=== PATIENT | female | born 1965 | race American Indian/Alaskan Native ===

== ENCOUNTER 2022-05-28 20:58 | Inpatient (IN) | payer BC, OTHER ==
--- NOTE | 2022-05-28 22:26 | Emergency Department Report ---
ED Seizure HPI - General Chief Complaint: Syncope Stated Complaint: SYNCOPE/SEIZURE Time Seen by Provider: 05/28/22 22:09 Source: patient, family, EMS Mode of arrival: Stretcher Limitations: No Limitations - History of Present Illness Initial Comments: 56-year-old female with history of right-sided breast cancer, status postmastectomy 2019, with recent diagnosis of metastatic breast cancer to her right parietal, acid reflux, brought in by EMS for witnessed seizure. Patient states that she and her were at yazidism tonight and she was in her usual state of health when she states she felt "weirdness" in her left arm and felt palpitations "like my heart was racing really fast." Patient's states that he was called to her side and was observed that she was lying on the floor, having jerking movements in her of her arms and legs, and not responding. He states the seizure lasted for approximately 5 minutes and thereafter she was radha y confused up until EMSs arrival approximately 12 minutes later. No fecal or urinary incontinence. No tongue biting, no foaming of the mouth. No active or recent alcohol usage, no tobacco, no illicit drug usage. Patient states she was not placed on seizure medication in the past. He states that she had similar episode of his witnessed seizure activity 4 months ago at which she seized while they were watching yazidism at home. He states at that time he wanted her to come to the hospital for evaluation but the patient refused. Patient verbalized agreement with this and that she refused to seek medical care. She states that her oncologist is Dr. Ida Mckay @ [facility] ([phone]). She states that she was on oral chemotherapy but reports that due to some side effects that she was experiencing in her right eye, her oncologist ordered her for a CAT scan of her head less than 1 week ago. She states she was told that she has "spreading cancer from the breast cancer to my right parietal part of my brain." She states her oncologist is in the process of arranging her to undergo radiation. Patient denies any symptoms at this time. Pain 0 out of 10. MD Complaint: seizure -: Sudden Description of Episode: tonic-clonic movement Duration of Episode: 5 (min) Witnessed:: Yes Trauma: No Seizure History: other (Patient's reports 1 prior witnessed episode of the same seizure activity approximately 1 month ago at which time the patient refused to go to the hospital) - Related Data Previous Rx's Medication Instructions Recorded Last Taken Type Ciprofloxacin HCl [Ciprofloxacin 500 mg PO Q12HR #14 tab 06/28/15 Unknown Rx TAB] HYDROcodone/APAP 5-325 [Keenes 1 each PO Q6HR PRN #16 tablet 06/28/15 Unknown Rx 5-325 mg TAB] Phenazopyridine [Pyridium] 200 mg PO TID #6 tab 06/28/15 Unknown Rx Allergies Allergy/AdvReac Type Severity Reaction Status Date / Time iodine Allergy Severe Shortness Verified 05/28/22 23:34 of Breath JALEPENO Allergy Severe Anaphylaxis Uncoded 05/28/22 23:35 ED Review of Systems ROS: Stated complaint: SYNCOPE/SEIZURE Other details as noted in HPI Comment: All other systems reviewed and negative Constitutional: no symptoms reported Eyes: as per HPI ENT: as per HPI Respiratory: cough Cardiovascular: as per HPI, palpitations. denies: chest pain, dyspnea on exertion, orthopnea, edema, syncope, paroxysmal nocturnal dyspnea, other Endocrine: see HPI Gastrointestinal: denies: as per HPI, abdominal pain, nausea, vomiting, diarrhea, constipation, hematemesis, melena, hematochezia, other Genitourinary: denies: as per HPI, urgency, dysuria, frequency, hematuria, discharge, abnormal menses, dyspareunia, other Musculoskeletal: denies: as per HPI, back pain, joint swelling, arthralgia, myalgia Skin: denies: as per HPI, rash, lesions, change in color, change in hair/nails, pruritus, other Neurological: other (seizure). denies: as per HPI, headache Psychiatric: as per HPI Hematological/Lymphatic: as per HPI ED Past Medical Hx - Past Medical History Hx Hypertension: Yes Hx Psychiatric Treatment: Yes (bipolar) Additional medical history: anemia, - Surgical History Additional Surgical History: tubal ligation - Social History Smoking Status: Never Smoker Substance Use Type: None - Medications Home Medications: Home Medications Medication Instructions Recorded Confirmed Last Taken Type Ciprofloxacin HCl [Ciprofloxacin 500 mg PO Q12HR #14 tab 06/28/15 Unknown Rx TAB] HYDROcodone/APAP 5-325 [Keenes 1 each PO Q6HR PRN #16 tablet 06/28/15 Unknown Rx 5-325 mg TAB] Phenazopyridine [Pyridium] 200 mg PO TID #6 tab 06/28/15 Unknown Rx ED Physical Exam - General Limitations: No Limitations, Language Barrier General appearance: alert, in no apparent distress - Head Head exam: Present: atraumatic, normocephalic, normal inspection - Eye Eye exam: Present: normal appearance, PERRL, EOMI, other (Sclera anicteric) Pupils: Present: normal accommodation - ENT ENT exam: Present: normal exam, normal orophraynx, mucous membranes moist - Neck Neck exam: Present: normal inspection, full ROM. Absent: tenderness, meningismus, lymphadenopathy, thyromegaly, other - Respiratory Respiratory exam: Present: normal lung sounds bilaterally - Cardiovascular Cardiovascular Exam: Present: normal rhythm, tachycardia, normal heart sounds. Absent: systolic murmur, diastolic murmur, rubs, gallop, clicks, JVD, S3, S4, other - Extremities Exam Extremities exam: Present: normal inspection, full ROM, normal capillary refill. Absent: tenderness, pedal edema, joint swelling - Back Exam Back exam: Present: normal inspection, full ROM. Absent: tenderness, CVA tenderness (R), CVA tenderness (L), muscle spasm, rash noted - Neurological Exam Neurological exam: Present: alert, oriented X3, CN II-XII intact, normal gait, motor sensory deficit, reflexes normal, other (No witnessed seizure or seizure- like activity, no asterixis, no tremor) - Psychiatric Psychiatric exam: Present: normal affect, normal mood - Skin Skin exam: Present: warm, dry, intact, normal color. Absent: rash, cyanosis, diaphoretic, erythema, urticaria, vesicles, petechiae, pallor, abrasion, ecchymosis ED Course Vital Signs 05/28/22 05/28/22 05/28/22 21:21 21:41 23:19 Temperature 98.2 F 98.2 F 98.2 F Pulse Rate 122 H 122 H 116 H Respiratory 16 16 20 Rate Blood Pressure 119/82 Blood Pressure 150/90 150/90 119/82 [Right] O2 Sat by Pulse 96 96 100 Oximetry - Reevaluation(s) Reevaluation #1: 05/28/22 22:29 Patient reassessed. She is comfortable and well-appearing, mentation is normal, moving all extremities, no seizure-like activity, no altered sensorium, no postictal state, no focal neurodeficits Reevaluation #2: 05/29/22 0 12:12 AM to 12:21 AM: Call made to Dr. Mckay. Return call received at 12:12 AM. I received a call from the covering oncologist, . Case reviewed with him via telephone. He advises the patient be transferred to [facility] as the patient's oncologist has consulting and admitting privileges there. 12: 28 AM: medical unit secretary Radha reports she has called both facility as above. Both state that they are on diversion and therefore cannot accept the patient for transfer.: 12:40pm: 05/29/22 01:23 Reevaluation #3: 05/29/22 12:03 AM: I had an extensive discussion with the patient and her at her bedside. She is ANO x4, mentating well, and she is in no extremis. At the time of our discussion I discussed the patient's options with her concerning necessity to rule out underlying pulmonary embolism as the cause of her elevated troponin, tachycardia, and syncopal episode that happened in the setting of her seizure. Risk benefits of all options discussed with the patient and they included undergoing CTA imaging (patient reports having adverse reaction to IV contrast approximately 1 year ago and the risk benefits of being premedicated were discussed with her as well), giving anticoagulation and and undergoing VQ scan during her hospital admission, and finally no imaging and no anticoagulation. I had multiple discussions with the patient and her concerning this. The patient subsequently elected to undergo IV contrast and to be premedicated before undergoing CTA chest to rule out pulmonary embolism 05/29/22 03:13 Patient reassessed. She is comfortable and well-appearing. Patient just returned from CAT scan. Denies any complaints at this time. Airways patent and intact. Vital signs stable. We will continue to monitor. ED Medical Decision Making - Lab Data Result diagrams: 05/28/22 22:40 05/28/22 22:40 - EKG Data -: EKG Interpreted by Me EKG shows normal: sinus rhythm Rate: tachycardia - EKG Data When compared to previous EKG there are: previous EKG unavailable Interpretation: other 05/29/22 03:14 No prior EKG available for comparison at this time - Radiology Data Radiology results: report reviewed - Medical Decision Making 56-year-old female with previously known right sided breast cancer, with known mets to her right parietal region, brought in by EMS for witnessed seizure while at yazidism. Vital signs reviewed. Patient tachycardic here and manifest sinus tachycardia. Serum labs reviewed. TSH troponin and D-dimer are abnormal. Repeat troponin however has improved. I attempted to have the patient transferred at the request of the covering oncologist, . However per unit trust manager Radha, both facilities to which she recommended the patient be transferred are on diversion at this time and therefore cannot accept the maribeth ent for transfer. CTA chest performed to rule out acute pulmonary embolism as a possible etiology for the patient's elevated troponin, syncopal episode, and tachycardia. CT scan results pending at the time of this dictation. Case reviewed directly with admitting hospitalist, . Patient will be accepted to the hospitalist service by him for further management. Critical care attestation.: If time is entered above; I have spent that time in minutes in the direct care of this critically ill patient, excluding procedure time. ED Disposition Clinical Impression: Seizure, Cancer of right breast metastatic to brain, Elevated troponin Disposition: ADMITTED INPATIENT Is pt being admited?: Yes Does the pt Need Aspirin: No Condition: Stable Referrals: ANTONIO ROSALES [Other] - 3-5 Days
--- NOTE | 2022-05-28 22:40 | XRay Report ---
CHEST 1 VIEW INDICATION / CLINICAL INFORMATION: palpitations. COMPARISON: None available. FINDINGS: SUPPORT DEVICES: Right-sided venous access device terminates near the cavoatrial junction. HEART / MEDIASTINUM: Heart size is within normal limits. Mediastinal contour demonstrates no signific ant abnormality. LUNGS / PLEURA: Confluent airspace opacities are present within the mid left chest. Additional densit y in the right upper lung may be part reflect rib lesion and/or soft tissue lesion. Lungs otherwise a re clear. BONES: The posterior right sixth rib demonstrates a mottled appearance with fracture. Compatible with pathologic fracture. No other osseous lesions are clearly demonstrated. ADDITIONAL FINDINGS: No significant additional findings. IMPRESSION: 1. Opacities left mid chest may reflect infection, atelectatic changes and isolated. 2. Rib lesions posterior right rib cage as detailed. Pathologic fracture of the right posterolateral sixth rib likely. Signer Name: Brent Bergman II, MD Signed: 05/28/2022 10:36 PM Workstation Name: [id number]
--- NOTE | 2022-05-28 22:49 | Cat Scan Report ---
CT HEAD WITHOUT CONTRAST INDICATION / CLINICAL INFORMATION: fall, head injury, seizure; hx of R parietal mets pt has breast ca ncer. TECHNIQUE: CT head was performed without administration of intravenous contrast. All CT scans at this location are performed using CT dose reduction for ALARA by means of automated exposure control. COMPARISON: None available. FINDINGS: CEREBRAL HEMISPHERES: 6 mm focus of hypoattenuation at the felton-white matter junction of the anterior left frontal lobe is demonstrated. In addition, there is extensive hypoattenuation of the right fron toparietal white matter with hyperdense mass along the inner table of the right parietal calvarium. N o definite displacement of cortex suggests that this may represent a cortical base as opposed to dura l based mass, further localization is difficult secondary to limits of modality. HEMORRHAGE: None. CEREBELLUM / BRAINSTEM: No significant abnormality. ORBITS: No significant abnormality. SOFT TISSUES: No significant abnormality. SKULL: No significant abnormality. PARANASAL SINUSES / MASTOID AIR CELLS: Complete opacification of right mastoid air cells. ADDITIONAL FINDINGS: Grossly abnormal appearance of the right mandibular condyle and angle. The condy le is displaced anterior and slightly inferior to the fossa. IMPRESSION: 1. Probable metastatic lesion right parietal cortex versus dural based metastatic lesion. Meningioma is considered to be less likely. 2. 6 mm focus of hypoattenuation in anterior left frontal felton-white matter junction may reflect deanne tional metastatic disease. MRI brain prior to and following administration of intravenous contrast is recommended for further characterization. 3. Grossly abnormal appearance of the right mandibular angle and mandibular condyle. Differential con siderations for this appearance would include metastatic disease, sequelae of previous trauma and/or sequelae of previous infection. 4. Opacification of right mastoid air cells. Signer Name: Brent Bergman II, MD Signed: 05/28/2022 10:44 PM Workstation Name: [id number]
[2022-05-28 23:02] LABS: Hematocrit 27.3 % (30.3-42.9); Hemoglobin 9.3 gm/dl (10.1-14.3); Mean Corpuscular HGB Conc 34 % (30-34); Mean Corpuscular Volume 84 fl (79-97); Platelet Count 410 K/mm3 (140-440); Red Blood Count 3.25 M/mm3 (3.65-5.03)
[2022-05-28 23:21] LABS: Alanine Aminotransferase 26 units/L (7-56); Albumin 3.8 g/dL (3.9-5); Blood Urea Nitrogen 12 mg/dL (7-17); Hemolysis Index 0
[2022-05-28 23:24] LABS: Red Cell Distribution Width 20.9 % (13.2-15.2)
[2022-05-28 23:32] LABS: Amphetamine Screen,Urine Negative; Benzodiazepines Screen,Urine Negative; Cannabinoid Screen,Urine Negative; Cocaine Screen,Urine Negative; Methadone Screen,Urine Negative; Opiate Screen,Urine Negative
[2022-05-28] MEDS ORDERED: levETIRAcetam 1000 MG/NS 0.75% 1,000 MG/100 ML BAG IV ONE (23:37)
[2022-05-28 23:38] LABS: BUN/Creatinine Ratio 20
[2022-05-28 23:55] LABS: Chol/HDL Ratio 6.3 %
[2022-05-29 00:19] LABS: Basophils % (Manual) 0 % (0.0-1.8); Eosinophils % (Manual) 0 % (0.0-4.3); Total Cells Counted 100
[2022-05-29 00:20] LABS: Anisocytosis 1+; Hypochromasia 2+; Platelet Estimate Consistent w Auto; Tear Drop Cells Few
[2022-05-29] MEDS ORDERED: diphenhydrAMINE 50 MG/ML VIAL IV ONE (01:00)
[2022-05-29] MEDS ORDERED: FAMOTIDINE 20 MG/2 ML INJ IV ONE (01:00)
[2022-05-29] MEDS ORDERED: SODIUM CHLORIDE 0.9% 1000 ML 1,000 ML IV ONE (01:00)
[2022-05-29] MEDS ORDERED: HYDROCORTISONE SOD SUCC 100 MG/2 ML VIAL IV ONE (01:01)
--- NOTE | 2022-05-29 03:28 | Cat Scan Report ---
CTA CHEST WITH CONTRAST INDICATION / CLINICAL INFORMATION: breast cancer, p/w syncope, seizure, elevated d di. TECHNIQUE: Axial CT images were obtained through the chest after injection of unspecified IV contrast . 3 plane MIP and/or 3D reconstructions were produced. All CT scans at this location are performed us ing CT dose reduction for ALARA by means of automated exposure control. COMPARISON: Chest x-ray same date. FINDINGS: VASCULAR FINDINGS: PULMONARY ARTERY: Pulmonary artery is normal in size. No filling defects are present compatible with pulmonary artery embolus.. THORACIC AORTA: No significant abnormality. CORONARY ARTERY CALCIFICATION: Absent -- None. NONVASCULAR FINDINGS: LOWER NECK: Soft tissues and musculature of the lower neck demonstrate no significant abnormality. Th e thyroid demonstrates no significant abnormality. HEART: No significant abnormality. MEDIASTINUM / RUTH: No significant abnormality. ESOPHAGUS: No significant abnormality. LYMPH NODES: Enlarged subcarinal lymph nodes are suggested. No axillary adenopathy. No additional med iastinal or hilar adenopathy clearly demonstrated. Note is made that the left hilum is partially obsc ured by atelectatic lung. LUNGS: Diffusely distributed metastatic nodules are noted throughout the bilateral lungs. Additional areas of nodular thickening of the pleural surfaces are suggested and within the left lower lobe nons pecific groundglass attenuation is present. Postobstructive atelectasis of the left upper lobe is pre sent. Within the atelectatic lung, no large or dominant masses present. Small foci of hypoattenuation may reflect additional evidence of metastatic disease. Additional pleural fluid versus thickening al mayte the anterior pleural surface of the left upper chest are present. PLEURA: Small moderate dependent left pleural effusion. No pneumothorax. Pleural-based metastatic dis ease in the region of the right sixth rib with suggest chest wall invasion and erosive changes of the right sixth rib. THORACIC SOFT TISSUES: Soft tissue swelling around the right scapula with permeative appearance of th e scapula compatible with metastatic involvement. BONES: Metastatic disease involving the right sixth rib, right scapula, and possibly within the right transverse process and posterior elements as well as left pedicle of T3 as well as vertebral body of T2. ADDITIONAL CHEST FINDINGS: None. UPPER ABDOMEN: Multiple hepatic metastatic lesions are demonstrated within the left and right hepatic lobes. The largest of these within the right hepatic lobe measures 3.5 x 3.4 cm. Enlarged lymph node s within the jessica hepatis. Enlarged lymph nodes adjacent stomach posterior to the pancreas. IMPRESSION: 1. No CT evidence for pulmonary embolism. 2. Diffuse pulmonary metastatic disease. 3. Postobstructive atelectasis of the left upper lobe. 4. Probable malignant pleural effusion left chest. 5. Pleural-based metastatic disease with erosive changes of the right sixth rib as well as involvemen t of the lower right scapula soft tissues 6. Multiple osseous metastatic lesions involving the right scapula diffusely, the right rib cage, mul tiple upper thoracic vertebral bodies. Nuclear medicine bone scan may be useful for further character ization and delineation of involvement of the osseous structures. 7. Extensive hepatic metastatic disease. 8. Enlarged subcarinal, jessica hepatic, and perigastric lymph nodes likely metastatic. Signer Name: Brent Bergman II, MD Signed: 05/29/2022 3:24 AM Workstation Name: [id number]
--- NOTE | 2022-05-29 03:32 | History and Physical Report ---
History of Present Illness Date of examination: 05/29/22 Date of admission: 05/29/2022 Chief complaint: Seizures History of present illness: 56-year-old -[place] female with known history of breast cancer status postmastectomy in 2019 and a recent diagnosis of metastatic breast cancer to the brain presents to the emergency room via EMS today for evaluation of seizure disorder. Patient was in the [place] with today when she started suddenly having palpitations. He subsequently started having jerky movements of arms and legs and was not quite responsive. She was noticed to have seizure lasting about 5 minutes apart for which she became confused. There was no urinary or fecal incontinence. No head injury. According to patient had a similar episode of couple of months ago while in [place] but patient refused to be evaluated in the hospital. She has not also been on any antiseizure medication. Patient follows up with an oncologist Dr. Juan C Mckay at [facility] [place]([id number].) She had been on oral chemotherapy. She had also recently been found to have metastatic cancer to the brain. She is being prepared for possible radiation therapy. Upon arrival in the emergency room today patient was found to be tachycardic. Work-up in the emergency room today, D-dimer was found to be elevated in the 3000's, troponin was also elevated at 0.050 CT angiogram did not reveal any PE. Diffuse pulmonary metastatic disease, probable malignant pleural effusion in the left chest.Extensive hepatic metatstatic disease. Chest x-ray shows opacities in the left mid chest which may reflect infection. There is likely pathologic fracture of the right posterolateral sixth rib. Patient was placed on IV Keppra. Past History Past Medical History: anemia, hypertension, other (Bipolar disease) Past Surgical History: Other (Tubal Ligation) Social history: no significant social history Family history: no significant family history Medications and Allergies Allergies Allergy/AdvReac Type Severity Reaction Status Date / Time iodine Allergy Severe Shortness Verified 05/28/22 23:34 of Breath JALEPENO Allergy Severe Anaphylaxis Uncoded 05/28/22 23:35 Home Medications Medication Instructions Recorded Confirmed Last Taken Type Ciprofloxacin HCl [Ciprofloxacin 500 mg PO Q12HR #14 tab 06/28/15 Unknown Rx TAB] HYDROcodone/APAP 5-325 [[place] 1 each PO Q6HR PRN #16 tablet 08/18/15 Unknown Rx 5-325 mg TAB] Phenazopyridine [Pyridium] 200 mg PO TID #6 tab 06/28/15 Unknown Rx Review of Systems Constitutional: no fever, no chills Ears, nose, mouth and throat: no nasal congestion, no sore throat Cardiovascular: no chest pain, no palpitations Respiratory: no cough, no shortness of breath Gastrointestinal: no abdominal pain, no nausea, no vomiting, no diarrhea Genitourinary Female: no flank pain, no dysuria, no hematuria Musculoskeletal: no neck pain, no low back pain Integumentary: no rash, no pruritis Neurological: no headaches, no confusion Psychiatric: no anxiety, no depression Endocrine: no polyphagia, no polydipsia, no polyuria, no nocturia Exam - Constitutional Vitals: Temp Pulse Resp BP Pulse Ox 98.2 F 116 H 20 119/82 100 05/28/22 23:19 05/28/22 23:19 05/28/22 23:19 05/28/22 23:19 05/28/22 23:19 General appearance: Present: no acute distress, well-nourished, other (Mild Pallor) - EENT Eyes: Present: PERRL, EOM intact. Absent: scleral icterus ENT: hearing intact, clear oral mucosa, dentition normal - Neck Neck: Present: supple, normal ROM - Respiratory Respiratory effort: normal Respiratory: bilateral: CTA - Cardiovascular Rhythm: regular Heart Sounds: Present: S1 & S2. Absent: gallop, systolic murmur, diastolic murmur, rub, click - Extremities Extremities: no ischemia, pulses intact, pulses symmetrical, No edema, normal temperature, Full ROM Peripheral Pulses: within normal limits - Abdominal General gastrointestinal: Present: soft, non-tender, non-distended, normal bowel sounds. Absent: mass - Integumentary Integumentary: Present: clear, warm, dry, normal turgor. Absent: rash - Musculoskeletal Musculoskeletal: strength equal bilaterally - Psychiatric Psychiatric: appropriate mood/affect, intact judgment & insight, memory intact, cooperative - Neurologic Neurologic: CNII-XII intact, no focal deficits, moves all extremities HEART Score - HEART Score Troponin: Troponin T 0.022 ng/mL (0.00-0.029) 05/29/22 01:39 Results - Labs CBC & Chem 7: 05/28/22 22:40 05/28/22 22:40 Labs: Abnormal lab results 05/28/22 05/28/22 05/28/22 Range/Units 22:40 22:40 22:40 RBC 3.25 L (3.65-5.03) M/mm3 Hgb 9.3 L (10.1-14.3) gm/dl Hct 27.3 L (30.3-42.9) % RDW 20.9 H (13.2-15.2) % Seg Neuts % (Manual) 87.0 H (40.0-70.0) % Lymphocytes % (Manual) 10.0 L (13.4-35.0) % Lymphocytes # (Manual) 0.6 L (1.2-5.4) K/mm3 D-Dimer 3521.48 H (0-234) ng/mlDDU Chloride (98-107) mmol/L Carbon Dioxide (22-30) mmol/L Alkaline Phosphatase (35-129) units/L Troponin T 0.050 H (0.00-0.029) ng/mL Albumin (3.9-5) g/dL Cholesterol 208 H (50-199) mg/dL LDL Cholesterol Direct 149 H (50-130) mg/dL HDL Cholesterol 33 L (40-59) mg/dL TSH (0.270-4.200) mlU/mL 05/28/22 05/28/22 Range/Units 22:40 22:40 RBC (3.65-5.03) M/mm3 Hgb (10.1-14.3) gm/dl Hct (30.3-42.9) % RDW (13.2-15.2) % Seg Neuts % (Manual) (40.0-70.0) % Lymphocytes % (Manual) (13.4-35.0) % Lymphocytes # (Manual) (1.2-5.4) K/mm3 D-Dimer (0-234) ng/mlDDU Chloride 97.1 L (98-107) mmol/L Carbon Dioxide 21 L (22-30) mmol/L Alkaline Phosphatase 273 H (35-129) units/L Troponin T (0.00-0.029) ng/mL Albumin 3.8 L (3.9-5) g/dL Cholesterol (50-199) mg/dL LDL Cholesterol Direct (50-130) mg/dL HDL Cholesterol (40-59) mg/dL TSH 9.570 H (0.270-4.200) mlU/mL Assessment and Plan Assessment: 1.Seizures 2.Elevated Troponin 3.Metastatic Breast Ca. 4.Hypertension 5. History of bipolar disorder Plan: 1. Patient placed on seizure precautions 2. Started on IV Keppra 3. Consult placed to neurology. 4. We will encourage follow-up with her oncologist 5. We will resume routine home medications once reconciled. DVT Prophylaxis: SQ Heparin Code Status: Full Code
[2022-05-29] MEDS ORDERED: LORazepam 2 MG/ML VIAL IV ONE (03:42)
[2022-05-29] MEDS ORDERED: ACETAMINOPHEN 325 MG TAB PO PRN (03:57)
[2022-05-29] MEDS ORDERED: MAGNESIUM HYDROXIDE (MOM) ORAL LIQD UDC PO PRN (03:57)
[2022-05-29] MEDS ORDERED: ONDANSETRON 4 MG/2 ML INJ IV PRN (03:57)
[2022-05-29] MEDS ORDERED: levETIRAcetam 500 MG in DEXTROSE 5% IN WATER 100 ML IV SCH (10:00)
--- NOTE | 2022-05-29 13:42 | Event Note ---
Date: 05/29/22 Patient seen bedside along with . We discussed findings of imaging collected during this inpatient stay. Plan for patient to undergo radiation therapy to the brain outpatient. Currently awaiting formal neurology consultation. We will continue with Dulce. Attempted to contact the patient's oncologist Dr. Ida Mckay at [phone], which proved to be unsuccessful. I will attempt to call again to give clinical update.
--- NOTE | 2022-05-29 15:45 | Consultation ---
History of Present Illness Consult date: 05/29/22 History of present illness: 56-year-old female with history of right-sided breast cancer, status postmastectomy 2019, with recent diagnosis of metastatic breast cancer to her right parietal, acid reflux, brought in by EMS for witnessed seizure. Patient states that she and her were at taoism tonight and she was in her usual state of health when she states she felt "weirdness" in her left arm and felt palpitations "like my heart was racing really fast." Patient's states that he was called to her side and was observed that she was lying on the floor, having jerking movements in her of her arms and legs, and not responding. He states the seizure lasted for approximately 5 minutes and thereafter she was very confused up until EMSs arrival approximately 12 minutes later. No fecal or urinary incontinence. No tongue biting, no foaming of the mouth. No active or recent alcohol usage, no tobacco, no illicit drug usage. Patient states she was not placed on seizure medication in the past. He states that she had similar episode of his witnessed seizure activity 4 months ago at which she seized while they were watching taoism at home. He st ates at that time he wanted her to come to the hospital for evaluation but the patient refused. Patient verbalized agreement with this and that she refused to seek medical care. She states that her oncologist is Dr. Ida Mckay @ [facility] [place] ([phone]). She states that she was on oral chemotherapy but reports that due to some side effects that she was experiencing in her right eye, her oncologist ordered her for a CAT scan of her head less than 1 week ago. She states she was told that she has "spreading cancer from the breast cancer to my right parietal part of my brain." She states her oncologist is in the process of arranging her to undergo radiation. While in the hospital patient reports no seizure. No side effects due to Keppra . Past History Past Medical History: anemia, hypertension, other (Bipolar disease) Past Surgical History: Other (Tubal Ligation) Social history: no significant social history Family history: no significant family history Medications and Allergies Allergies Allergy/AdvReac Type Severity Reaction Status Date / Time iodine Allergy Severe Shortness Verified 05/28/22 23:34 of Breath JALEPENO Allergy Severe Anaphylaxis Uncoded 05/28/22 23:35 Home Medications Medication Instructions Recorded Confirmed Last Taken Type HYDROcodone/APAP 5-325 [[place] 1 each PO Q6HR PRN #16 tablet 06/28/15 05/29/22 Unknown Rx 5-325 mg TAB] Bisoprolol Fumarate 5 mg PO HS 05/29/22 05/29/22 Unknown History Megestrol Acetate 20 mg PO QDAY 05/29/22 05/29/22 Unknown History Pantoprazole [Protonix] 40 mg PO QDAY 05/29/22 05/29/22 Unknown History Active Meds: Active Medications Acetaminophen (Acetaminophen 325 Mg Tab) 650 mg PO Q4H PRN PRN Reason: Pain MILD(1-3)/Fever >100.5/SHER Levetiracetam 500 mg/ Dextrose 105 mls @ 400 mls/hr IV Q12HR [facility] Last Admin: 05/29/22 10:21 Dose: 400 mls/hr Magnesium Hydroxide (Magnesium Hydroxide (Mom) Oral Liqd Udc) 30 ml PO Q4H PRN PRN Reason: Constipation Morphine Sulfate (Morphine 2 Mg/1 Ml Inj) 2 mg IV Q4H PRN PRN Reason: Pain, Moderate (4-6) Morphine Sulfate (Morphine 4 Mg/1 Ml Inj) 4 mg IV Q4H PRN PRN Reason: Pain , Severe (7-10) Ondansetron HCl (Ondansetron 4 Mg/2 Ml Inj) 4 mg IV Q8H PRN PRN Reason: Nausea And Vomiting Sodium Chloride (Sodium Chloride 0.9% 10 Ml Flush Syringe) 10 ml IV BID [facility] Last Admin: 05/29/22 10:21 Dose: 10 ml Sodium Chloride (Sodium Chloride 0.9% 10 Ml Flush Syringe) 10 ml IV PRN PRN PRN Reason: LINE FLUSH Physical Examination - Vital Signs Vital Signs: Vital Signs Temp Pulse Resp BP Pulse Ox 98.2 F 122 H 16 150/90 96 05/28/22 21:21 05/28/22 21:21 05/28/22 21:21 05/28/22 21:21 05/28/22 21:21 - Physical Exam Narrative exam: The patient is alert , moves all 4 extremity . No neck stiffness . Results - Laboratory Findings CBC and BMP: 05/28/22 22:40 05/28/22 22:40 Abnormal Lab Findings: Abnormal Labs 05/28/22 05/28/22 05/28/22 22:40 22:40 22:40 RBC 3.25 L Hgb 9.3 L Hct 27.3 L RDW 20.9 H Seg Neuts % (Manual) 87.0 H Lymphocytes % (Manual) 10.0 L Lymphocytes # (Manual) 0.6 L D-Dimer 3521.48 H Chloride Carbon Dioxide Alkaline Phosphatase Troponin T 0.050 H Albumin Cholesterol 208 H LDL Cholesterol Direct 149 H HDL Cholesterol 33 L TSH 05/28/22 05/28/22 22:40 22:40 RBC Hgb Hct RDW Seg Neuts % (Manual) Lymphocytes % (Manual) Lymphocytes # (Manual) D-Dimer Chloride 97.1 L Carbon Dioxide 21 L Alkaline Phosphatase 273 H Troponin T Albumin 3.8 L Cholesterol LDL Cholesterol Direct HDL Cholesterol TSH 9.570 H Assessment and Plan 1. Seizures secondary to possible brain metastatis . 2. Continue Keppra 500 mg 1 tab BID , if well tolerated on discharge it with 7 50mg 1 tab BID . 3. Please inform Primary Oncologist . 4. Call me with Questions . 5. MRI Brain W/WO is recommended . Dr. Mcfadden
--- NOTE | 2022-05-29 18:56 | Electrocardiograph Report ---
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
[2022-05-29] MEDS ORDERED: levETIRAcetam 1,000 MG in DEXTROSE 5% IN WATER 100 ML IV SCH (22:00)
[2022-05-29] MEDS: MORPHINE 2 MG/1 ML INJ IV PRN (23:44)
[2022-05-30 05:05] LABS: Basophils % (Auto) 0.3 % (0.0-1.8); Eosinophils % (Auto) 0.3 % (0.0-4.3); Hematocrit 24.4 % (30.3-42.9); Hemoglobin 7.9 gm/dl (10.1-14.3); Lymphocytes # (Auto) 0.8 K/mm3 (1.2-5.4); Lymphocytes % (Auto) 18.2 % (13.4-35.0); Mean Corpuscular HGB Conc 32 % (30-34); Mean Corpuscular Volume 85 fl (79-97); Monocytes # (Auto) 0.4 K/mm3 (0.0-0.8); Monocytes % (Auto) 8.6 % (0.0-7.3); Platelet Count 354 K/mm3 (140-440); Red Blood Count 2.88 M/mm3 (3.65-5.03)
[2022-05-30 05:06] LABS: Red Cell Distribution Width 20.8 % (13.2-15.2)
[2022-05-30 05:28] LABS: Blood Urea Nitrogen 11 mg/dL (7-17); Calcium 9.1 mg/dL (8.4-10.2); Hemolysis Index 0
[2022-05-30 05:30] LABS: BUN/Creatinine Ratio 22
[2022-05-30] MEDS ORDERED: levETIRAcetam 500 MG TAB PO SCH (10:00)
[2022-05-30] MEDS: levETIRAcetam 500 MG/5 ML ORAL LIQD PO SCH ×2 (10:34→22:29)
[2022-05-30] MEDS ORDERED: methylPREDNISolone Sod Succinate 40 MG/1 ML INJ IV ONE (12:40)
[2022-05-30] MEDS ORDERED: diphenhydrAMINE 50 MG/ML VIAL IV ONE (12:40)
--- NOTE | 2022-05-30 15:25 | Progress Note ---
Assessment and Plan Assessment and plan: #Seizures #Brain metastases -seizures likely secondary to brain metastases; patient has history of brain mets -continue Keppra -MRI brain w/wo pending, patient requires premedication prior to contrast administration -Neurology following, assistance appreciated #Elevated troponin -patient without chest pain -EKG without ST changes -likely type II, downtrending without intervention #Metastatic Breast Cancer -patient s/p oral chemotherapy, has to follow up with Oncologist about further treatment -MRI chest/abd ordered; lungs and liver metastases seen on CT scan -follows with Dr. Mckay at [facility] in [place]; will defer discussions about prognosis to her #Dyspnea #L pleural effusion -patient complaining of cough and dyspnea with exertion and difficulty breathing when lying flat -CTA of chest negative for PE, did show mets and L effusion -US guided thoracentesis ordered #Hypertension -patient normotensive while inpatient -will hold home bisoprosol for now #Normocytic anemia -no signs of bleeding -Hgb 7.9/24.4 -will transfuse for Hgb less than 7 #Advanced care planning -Disease education conducted, care plan discussed, diagnoses discussed, prognosis discussed, and patient acknowledges understanding with care plan. -Time: +30 min History Interval history: No acute events overnight. Patient updated about current care plan. All her questions and concerns were addressed. Patient reports distress about findings on imaging. She will follow-up with her outpatient oncologist for further recommendations. Hospitalist Physical - Physical exam Narrative exam: GENERAL: Thin woman. In no acute distress. HEENT: Alopecia. NECK: Port in right chest. CHEST/LUNGS: Decreased breath sounds at left base. Right lung CTAB. HEART/CARDIOVASCULAR: Mildly tachycardic. No murmur, rubs or gallops appreciated. ABDOMEN: +BS. NT/ND. NEURO: No focal motor deficit. Follows all commands. MUSCULOSKELETAL: No joint effusion EXTREMITIES: No cyanosis, clubbing or edema. PSYCH: Cooperative. - Constitutional Vitals: Temp Pulse Resp BP Pulse Ox 98.2 F 123 H 17 103/78 99 05/30/22 11:41 05/30/22 11:41 05/30/22 03:58 05/30/22 11:41 05/30/22 11:41 General appearance: Present: no acute distress, well-nourished, other (Mild Pall or) HEART Score - HEART Score Troponin: Troponin T 0.022 ng/mL (0.00-0.029) 05/29/22 01:39 Results - Labs CBC & Chem 7: 05/30/22 04:47 05/30/22 04:47 Labs: Laboratory Last Values WBC 4.3 K/mm3 (4.5-11.0) L 05/30/22 04:47 RBC 2.88 M/mm3 (3.65-5.03) L 05/30/22 04:47 Hgb 7.9 gm/dl (10.1-14.3) L 05/30/22 04:47 Hct 24.4 % (30.3-42.9) L 05/30/22 04:47 MCV 85 fl (79-97) 05/30/22 04:47 MCH 27 pg (28-32) L 05/30/22 04:47 MCHC 32 % (30-34) 05/30/22 04:47 RDW 20.8 % (13.2-15.2) H 05/30/22 04:47 Plt Count 354 K/mm3 (140-440) 05/30/22 04:47 Lymph % (Auto) 18.2 % (13.4-35.0) 05/30/22 04:47 [place] % (Auto) 8.6 % (0.0-7.3) H 05/30/22 04:47 Eos % (Auto) 0.3 % (0.0-4.3) 05/30/22 04:47 Baso % (Auto) 0.3 % (0.0-1.8) 05/30/22 04:47 Lymph # (Auto) 0.8 K/mm3 (1.2-5.4) L 05/30/22 04:47 [place] # (Auto) 0.4 K/mm3 (0.0-0.8) 05/30/22 04:47 Eos # (Auto) 0.0 K/mm3 (0.0-0.4) 05/30/22 04:47 Baso # (Auto) 0.0 K/mm3 (0.0-0.1) 05/30/22 04:47 Add Manual Diff Complete 05/28/22 22:40 Total Counted 100 05/28/22 22:40 Seg Neutrophils % 72.6 % (40.0-70.0) H 05/30/22 04:47 Seg Neuts % (Manual) 87.0 % (40.0-70.0) H 05/28/22 22:40 Band Neutrophils % 0 % 05/28/22 22:40 Lymphocytes % (Manual) 10.0 % (13.4-35.0) L 05/28/22 22:40 Reactive Lymphs % (Man) 0 % 05/28/22 22:40 Monocytes % (Manual) 3.0 % (0.0-7.3) 05/28/22 22:40 Eosinophils % (Manual) 0 % (0.0-4.3) 05/28/22 22:40 Basophils % (Manual) 0 % (0.0-1.8) 05/28/22 22:40 Metamyelocytes % 0 % 05/28/22 22:40 Myelocytes % 0 % 05/28/22 22:40 Promyelocytes % 0 % 05/28/22 22:40 Blast Cells % 0 % 05/28/22 22:40 Nucleated RBC % Not Reportable 05/28/22 22:40 Seg Neutrophils # 3.1 K/mm3 (1.8-7.7) 05/30/22 04:47 Seg Neutrophils # Man 5.1 K/mm3 (1.8-7.7) 05/28/22 22:40 Band Neutrophils # 0.0 K/mm3 05/28/22 22:40 Lymphocytes # (Manual) 0.6 K/mm3 (1.2-5.4) L 05/28/22 22:40 Abs React Lymphs (Man) 0.0 K/mm3 05/28/22 22:40 Monocytes # (Manual) 0.2 K/mm3 (0.0-0.8) 05/28/22 22:40 Eosinophils # (Manual) 0.0 K/mm3 (0.0-0.4) 05/28/22 22:40 Basophils # (Manual) 0.0 K/mm3 (0.0-0.1) 05/28/22 22:40 Metamyelocytes # 0.0 K/mm3 05/28/22 22:40 Myelocytes # 0.0 K/mm3 05/28/22 22:40 Promyelocytes # 0.0 K/mm3 05/28/22 22:40 Blast Cells # 0.0 K/mm3 05/28/22 22:40 WBC Morphology Not Reportable 05/28/22 22:40 Hypersegmented Neuts Not Reportable 05/28/22 22:40 Hyposegmented Neuts Not Reportable 05/28/22 22:40 Hypogranular Neuts Not Reportable 05/28/22 22:40 Smudge Cells Not Reportable 05/28/22 22:40 Toxic Granulation Not Reportable 05/28/22 22:40 Toxic Vacuolation Not Reportable 05/28/22 22:40 Dohle Bodies Not Reportable 05/28/22 22:40 Pelger-Huet Anomaly Not Reportable 05/28/22 22:40 Preethi Rods Not Reportable 05/28/22 22:40 Platelet Estimate Consistent w auto 05/28/22 22:40 Clumped Platelets Not Reportable 05/28/22 22:40 Plt Clumps, EDTA Not Reportable 05/28/22 22:40 Large Platelets Not Reportable 05/28/22 22:40 Giant Platelets Not Reportable 05/28/22 22:40 Platelet Satelliting Not Reportable 05/28/22 22:40 Plt Morphology Comment Not Reportable 05/28/22 22:40 RBC Morphology Not Reportable 05/28/22 22:40 Dimorphic RBCs Not Reportable 05/28/22 22:40 Polychromasia Not Reportable 05/28/22 22:40 Hypochromasia 2+ 05/28/22 22:40 Poikilocytosis Not Reportable 05/28/22 22:40 Anisocytosis 1+ 05/28/22 22:40 Microcytosis 1+ 05/28/22 22:40 Macrocytosis Not Reportable 05/28/22 22:40 Spherocytes Not Reportable 05/28/22 22:40 Pappenheimer Bodies Not Reportable 05/28/22 22:40 Sickle Cells Not Reportable 05/28/22 22:40 Target Cells Not Reportable 05/28/22 22:40 Tear Drop Cells Few 05/28/22 22:40 Ovalocytes Not Reportable 05/28/22 22:40 Helmet Cells Not Reportable 05/28/22 22:40 [place] Bodies Not Reportable 05/28/22 22:40 Dixon Rings Not Reportable 05/28/22 22:40 [place] Cells Not Reportable 05/28/22 22:40 Bite Cells Not Reportable 05/28/22 22:40 Crenated Cell Not Reportable 05/28/22 22:40 Elliptocytes Not Reportable 05/28/22 22:40 Acanthocytes (Spur) Not Reportable 05/28/22 22:40 Rouleaux Not Reportable 05/28/22 22:40 Hemoglobin C Crystals Not Reportable 05/28/22 22:40 Schistocytes Not Reportable 05/28/22 22:40 Malaria parasites Not Reportable 05/28/22 22:40 Abdirizak Bodies Not Reportable 05/28/22 22:40 Hem Pathologist Commnt No 05/28/22 22:40 D-Dimer 3521.48 ng/mlDDU (0-234) H 05/28/22 22:40 Sodium 138 mmol/L (137-145) 05/30/22 04:47 Potassium 3.9 mmol/L (3.6-5.0) 05/30/22 04:47 Chloride 103.4 mmol/L (98-107) 05/30/22 04:47 Carbon Dioxide 19 mmol/L (22-30) L 05/30/22 04:47 Anion Gap 20 mmol/L 05/30/22 04:47 BUN 11 mg/dL (7-17) 05/30/22 04:47 Creatinine 0.5 mg/dL (0.6-1.2) L 05/30/22 04:47 Estimated GFR > 60 ml/min 05/30/22 04:47 BUN/Creatinine Ratio 22 % 05/30/22 04:47 Glucose 112 mg/dL (65-100) H 05/30/22 04:47 POC Glucose 90 mg/dL (70-105) 05/28/22 23:39 Calcium 9.1 mg/dL (8.4-10.2) 05/30/22 04:47 Total Bilirubin 0.20 mg/dL (0.1-1.2) 05/28/22 22:40 AST 29 units/L (5-40) 05/28/22 22:40 ALT 26 units/L (7-56) 05/28/22 22:40 Alkaline Phosphatase 273 units/L (35-129) H 05/28/22 22:40 Troponin T 0.022 ng/mL (0.00-0.029) 05/29/22 01:39 NT-Pro-B Natriuret Pep 579.0 pg/mL (0-900) 05/29/22 00:29 Total Protein 8.2 g/dL (6.3-8.2) 05/28/22 22:40 Albumin 3.8 g/dL (3.9-5) L 05/28/22 22:40 Albumin/Globulin Ratio 0.9 % 05/28/22 22:40 Triglycerides 144 mg/dL (2-149) 05/28/22 22:40 Cholesterol 208 mg/dL (50-199) H 05/28/22 22:40 LDL Cholesterol Direct 149 mg/dL (50-130) H 05/28/22 22:40 HDL Cholesterol 33 mg/dL (40-59) L 05/28/22 22:40 Cholesterol/HDL Ratio 6.30 % 05/28/22 22:40 TSH 9.570 mlU/mL (0.270-4.200) H 05/28/22 22:40 Urine Opiates Screen Negative 05/28/22 23:12 Urine Methadone Screen Negative 05/28/22 23:12 Ur Barbiturates Screen Negative 05/28/22 23:12 Ur Phencyclidine Scrn Negative 05/28/22 23:12 Ur Amphetamines Screen Negative 05/28/22 23:12 U Benzodiazepines Scrn Negative 05/28/22 23:12 Urine Cocaine Screen Negative 05/28/22 23:12 U Marijuana (THC) Screen Negative 05/28/22 23:12 Drugs of Abuse Note Disclamer 05/28/22 23:12 Plasma/Serum Alcohol < 0.01 % (0-0.07) 05/28/22 22:40 Microbiology: Microbiology 05/29/22 02:16 Peripheral/Venous Blood Culture - Preliminary NO GROWTH AFTER 24 HOURS 05/29/22 02:15 Peripheral/Venous Blood Culture - Preliminary NO GROWTH AFTER 24 HOURS [place]/IV: Voiding Method Toilet Active Medications - Current Medications Current Medications: Generic Name Dose Route Start Last Admin Trade Name Freq PRN Reason Stop Dose Admin Acetaminophen 650 mg 05/29/22 03:57 05/29/22 22:38 Acetaminophen 325 Mg Tab PO 650 mg Q4H PRN Administration Pain MILD(1-3)/Fever >100.5/SHER Famotidine 20 mg 05/31/22 12:40 Famotidine 20 Mg/2 Ml Inj IV 05/31/22 12:41 ONCE ONE Levetiracetam 750 mg 05/30/22 10:00 05/30/22 10:34 Levetiracetam 500 Mg/5 Ml Oral Liqd PO 750 mg BID ESTUARDO Administration Magnesium Hydroxide 30 ml 05/29/22 03:57 Magnesium Hydroxide (Mom) Oral Liqd Udc PO Q4H PRN Constipation Morphine Sulfate 2 mg 05/29/22 03:57 05/29/22 23:44 Morphine 2 Mg/1 Ml Inj IV 2 mg Q4H PRN Administration Pain, Moderate (4-6) Morphine Sulfate 4 mg 05/29/22 03:57 Morphine 4 Mg/1 Ml Inj IV Q4H PRN Pain , Severe (7-10) Ondansetron HCl 4 mg 05/29/22 03:57 Ondansetron 4 Mg/2 Ml Inj IV Q8H PRN Nausea And Vomiting Sodium Chloride 10 ml 05/29/22 10:00 05/30/22 10:35 Sodium Chloride 0.9% 10 Ml Flush Syringe IV 10 ml BID ESTUARDO Administration Sodium Chloride 10 ml 05/29/22 03:57 Sodium Chloride 0.9% 10 Ml Flush Syringe IV PRN PRN LINE FLUSH
[2022-05-30 15:37] LABS: INR 1.08 (0.87-1.13); Partial Thromboplastin Time 27.5 Sec. (24.2-36.6)
--- NOTE | 2022-05-30 18:06 | Magnetic Resonance Report ---
MR brain wo/w con INDICATION / CLINICAL INFORMATION: 56 years Female; brain mets, BREAST CA, ABN. CT. TECHNIQUE: Multiplanar, multisequence MR images of the brain were obtained. COMPARISON: CT-05/28/2022 FINDINGS: BRAIN / INTRACRANIAL CONTENTS: Extra-axial lesion is seen adjacent to the precuneus on the right, cau sing mild mass effect on the falx cerebri and is directly adjacent to the superior sagittal sinus. Th is lobular lesion also demonstrates significant, adjacent dural thickening. The lesion overall measur es approximately 3.3 cm in a para transverse dimension by 1.9 cm in a para AP dimension by approximat carey 2.9 cm craniocaudally. Findings are certainly worrisome for metastatic disease given this patient 's history of breast cancer. Surrounding vasogenic edema seen with this finding and the adjacent brai n parenchyma. Much of the right parietal bone appears to be involved. There is also leptomeningeal enhancement in the right parietal lobe, adjacent to the above-mentioned extra-axial lesion-leptomeningeal spread of disease cannot entirely be excluded. In addition, there is heterogeneous appearance of the left frontal bone, somewhat diffusely, with abn ormal soft tissue along both the inner and outer tables of the calvarium-metastatic disease is suspec sasha. There may be some component of involvement of the left sphenoid wing as well. Mild calvarial metastasis suggested in the left parietal bone posteriorly. Otherwise, no acute hemorrhage, mass effect, midline shift, hydrocephalus, or acute, large territori al infarct. No chronic infarct or atrophy. There are [id number] areas of increased signal intensity on FLAIR imaging in the white matter o f the cerebral hemispheres. These are nonspecific findings and may be related to microangiopathy (hyp ertension, diabetes, atherosclerosis), given the patient's age. CRANIOCERVICAL JUNCTION: No significant abnormality. VASCULAR FLOW-VOIDS: No significant abnormality. ORBITS: No significant abnormality of visualized orbits. SINUSES / MASTOIDS: Mild to moderate mucosal thickening seen in the left frontal sinus. Complete opac ification of the right mastoid and middle ear cavity is seen. There is mucosal thickening in the infe rior mastoids on the left. ADDITIONAL FINDINGS: Abnormal soft tissues seen in the right education faculty member space, most likely related to a mandibular lesion, presumably related to metastatic disease, as well. IMPRESSION: 1. 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 2. Right mandibular lesion suggested. Signer Name: Dandre Garcia MD, III Signed: 05/30/2022 6:01 PM Workstation Name: [id number]
[2022-05-30] MEDS: MORPHINE 4 MG/1 ML INJ IV PRN (22:31)
[2022-05-30] MEDS: DEXAMETHASONE 4 MG TAB PO SCH (22:54)
[2022-05-31] MEDS: MORPHINE 4 MG/1 ML INJ IV PRN ×2 (03:54→10:02)
[2022-05-31] MEDS: DEXAMETHASONE 4 MG TAB PO SCH ×3 (04:00→16:09)
[2022-05-31] MEDS ORDERED: diphenhydrAMINE 50 MG/ML VIAL IV NR (08:10)
[2022-05-31] MEDS ORDERED: FAMOTIDINE 20 MG/2 ML INJ IV NR (08:11)
[2022-05-31] MEDS: levETIRAcetam 500 MG/5 ML ORAL LIQD PO SCH (09:58)
[2022-05-31] MEDS ORDERED: FAMOTIDINE 20 MG/2 ML INJ IV ONE (12:40)
[2022-05-31] MEDS: MORPHINE 2 MG/1 ML INJ IV PRN (14:20)
--- NOTE | 2022-05-31 16:35 | Ultrasound Report ---
Ultrasound-guided thoracentesis 05/31/2022 3:30 PM Indication: Pleural Effusion Procedure: Procedure was discussed with the patient including alternatives, risks and benefits. Risks of the pro cedure including bleeding, infection, and pneumothorax were explained. Patient's questions were answe red. Informed consent was obtained. The patient was placed in an upright seated position. Adequate site for thoracentesis was identified on the left. Skin was marked and prepped and draped in sterile fashion. Local anesthesia was infused. A 6 Ghanaian centesis needle catheter system was inserted into the pleural space. Approximately 0.5 L of fluid was withdrawn. There were no immediate complications. Fluid was not sent to lab Impression: Successful ultrasound-guided thoracentesis Signer Name: Miguel Iniguez DO Signed: 05/31/2022 4:31 PM Workstation Name: [id number]
--- NOTE | 2022-05-31 16:40 | Magnetic Resonance Report ---
MRI ABDOMEN WITHOUT AND WITH CONTRAST INDICATION / CLINICAL INFORMATION: METASTATIC CANCER. TECHNIQUE: Multiplanar, multisequence series were obtained through the abdomen. COMPARISON: CT of the chest dated 04/29/2022 FINDINGS: LOWER CHEST: Trace left pleural effusion. LIVER: Again seen are numerous metastatic foci throughout the liver. The largest lesion in the right hepatic lobe measures approximately 3.3 x 3.1 cm. the largest lesion within the left hepatic lobe yoana sures approximately 1.8 x 1.8 cm. GALLBLADDER: No significant abnormality. BILE DUCTS: No significant abnormality. PANCREAS: No significant abnormality. SPLEEN: No significant abnormality. ADRENALS: No significant abnormality. RIGHT KIDNEY / URETER: No significant abnormality. LEFT KIDNEY / URETER: No significant abnormality. STOMACH / VISUALIZED BOWEL: No significant abnormality. PERITONEUM: No free fluid. No free air. No fluid collection. LYMPH NODES: No significant adenopathy. AORTA / ARTERIES: No significant abnormality. IVC / VEINS: No significant abnormality. ADDITIONAL FINDINGS: None. SKELETAL SYSTEM: Multiple metastatic lesions are noted throughout the thoracolumbar spine. Of note th e T12 vertebral body contains a 2.5 x 2.9 cm metastatic focus the L1 vertebral body contains a 2.6 x 2.6 cm metastatic focus and this metastatic focus appears to extend to the right transverse process a nd lamina. IMPRESSION: 1. Hepatic and bony metastatic disease. Signer Name: Miguel Iniguez DO Signed: 05/31/2022 4:35 PM Workstation Name: [id number]
[2022-05-31 16:46] VITALS: BP 114/85
--- NOTE | 2022-05-31 16:49 | Discharge Summary ---
Providers - Providers Date of Admission: 05/29/22 03:58 Date of discharge: 05/31/22 Attending physician: KATH BERTRAND MD 05/29/22 03:57 Consult to Physician [CONS] Routine Comment: Consulting Provider: CHRISTOPH MAYFIELD Physician Instructions: Reason For Exam: Seizure Disorder Hospitalization Reason for admission: Seizure Condition: Stable Disposition: 30 STILL A PATIENT Time spent for discharge: 60 minutes Core Measure Documentation - Palliative Care Palliative Care/ Comfort Measures: Not Applicable - Core Measures Any of the following diagnoses?: none Exam - Physical Exam Narrative exam: GENERAL: Thin woman. In no acute distress. HEENT: Alopecia. NECK: Port in right chest. CHEST/LUNGS: Decreased breath sounds at left base. Right lung CTAB. HEART/CARDIOVASCULAR: Mildly tachycardic. No murmur, rubs or gallops appreciated. ABDOMEN: +BS. NT/ND. NEURO: No focal motor deficit. Follows all commands. MUSCULOSKELETAL: No joint effusion EXTREMITIES: No cyanosis, clubbing or edema. PSYCH: Cooperative. - Constitutional Vitals: Temp Pulse Resp BP Pulse Ox 97.8 F 85 18 114/85 100 05/31/22 15:59 05/31/22 15:59 05/31/22 15:59 05/31/22 15:59 05/31/22 15:59 Plan Activity: no driving until cleared by PCP Diet: regular Care Plan Goals: Please follow-up with Dr. Mckay as soon as possible to discuss the imaging findings from this hospital stay. You can request medical records and imaging to be released to all outside providers through medical records on the 1st floor of the hospital. Have your PCP to refer you to a Neurologist to manage your seizure medication. The medication you are taking is called Keppra. Please do not drive, operate heavy machinery or swim until you have followed up with a Neurologist in regards to your seizures. Resume and take all medications as prescribed. Follow up with: ANTONIO ROSALES [Other] - 3-5 Days Prescriptions: levETIRAcetam [Keppra TAB] 750 mg PO BID 90 Days #180 tab
== END 2022-05-31 17:50 | disposition home or self-care (01) | DRG 101 ==
LOC: ED 20:58 → 4A 05-29 03:58
PROVIDERS: ADMIT Internal Medicine Geriatric Medicine; ATTEND Student in an Organized Health Care Education/Training Program
DX: G40.909 Epilepsy, unspecified, not intractable, without status epilepticus (principal); J90 Pleural effusion, not elsewhere classified; C50.911 Malignant neoplasm of unspecified site of right female breast; F31.9 Bipolar disorder, unspecified; I10 Essential (primary) hypertension; D64.9 Anemia, unspecified
CPT/HCPCS: 32555; 36415; 70450; 70553; 71045; 71275; 74183; 80048; 80053; 80061; 80307; 80320; 82962; 83880; 84443; 84484; 85007; 85025; 85379; 85610; 85730; 87040; 93005; G0378; J3490; J7060; A9575; G0480; J1200; J1720; J1953; J2060; J2270; J2920; J7030; J8540; Q9967